=== PATIENT | male | born 2000 | race Caucasian/White ===

== ENCOUNTER 2023-10-26 03:22 | Emergency (ER) | payer SELFPAY ==
[2023-10-26 03:23] VITALS: BP 183/110; PULSE 105; RESP 18; TEMP 36.4; O2SAT 100; BMI 30.4
--- NOTE | 2023-10-26 03:29 | EKG12_ITS ---
Test Reason : [facility] [place] Blood Pressure : / mmHG Vent. Rate : 092 BPM Atrial Rate : 092 BPM P-R Int : 132 ms QRS Dur : 088 ms QT Int : 372 ms P-R-T Axes : 049 010 037 degrees QTc Int : 460 ms Normal sinus rhythm Minimal voltage criteria for LVH, may be normal variant ( R in aVL ) Borderline ECG Confirmed by ANA AGUAYO, МАРИНА ([id number]), editorial assistant DARREN LATIF ([id number]) on 11/03/2023 9:19:48 AM Referred By: Confirmed By:МАРИНА PEREZ MD
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
[2023-10-26 03:54] LABS: Absolute Lymphocyte Count 2.09 X10^3/uL (0.83-4.51); Absolute Neutrophil Count 6.5 X10^3/uL (2.0-7.7); Basophil# 0.05 X10^3/uL; Basophil% 0.5 % (0-1); Eosinophil# 0.02 X10^3/uL; Eosinophils% 0.2 % (0-5); Hematocrit 46.1 % (40-54); Hemoglobin 15.4 g/dL (13.0-16.5); Lymphocyte # 2.09 X10^3/ul (0.83-4.51); Lymphocyte % 22.1 % (19-41); Mean Corp Hgb Conc 33.4 g/dL (32-36); Mean Corpuscular Hgb 30.1 pg (27.0-32.0); Mean Platelet Vol. 11.2 fl (6.2-12.0); Monocyte# 0.76 X10^3/uL; NRBC Flagged by Analyzer 0 % (0-5); Neutrophil # 6.49 X10^3/uL (2.7-7.7); Neutrophil % 68.7 % (47-70); Platelet Count 262 K/mm3 (150-450); RBC Distribution Width CV 12.1 % (11.6-14.6); Red Blood Count 5.12 M/mm3 (4.6-6.2); White Blood Count 9.5 K/mm3 (4.4-11.0)
[2023-10-26 04:22] VITALS: RESP 16; O2SAT 98
[2023-10-26 05:22] VITALS: BP 126/73; PULSE 78; RESP 16; TEMP 36.6; O2SAT 98
[2023-10-26 07:24] LABS: Amphetamine Urine VISTA NEGATIVE (<1000 ng/mL); Barbiturate Urine VISTA NEGATIVE (< 200 ng/mL); Benzodiazepine Urine VISTA NEGATIVE (< 200 ng/mL); Cocaine Urine VISTA NEGATIVE (< 300 ng/mL); Ecstacy Urine VISTA NEGATIVE (< 500 ng/mL); Methadone Urine VISTA NEGATIVE (< 300 ng/mL); PCP Urine VISTA NEGATIVE (< 25 ng/mL); THC Urine VISTA NEGATIVE (< 50 ng/mL); Vista UDS pH Range 6
[2023-10-26 09:09] VITALS: BP 140/84; PULSE 80; RESP 16; TEMP 36.6; O2SAT 98
--- NOTE | 2023-10-26 09:45 | NURSING ---
Pt allowed to use personal phone at this time. [place] set that if having the phone escalated any negative behavior, it would be taken. Pt agreeable to this.
[2023-10-26 10:12] LABS: BUN 6 mg/dL (7-18); BUN/Creat Ratio 5.6 RATIO (10-20); Creatinine, Serum 1.08 mg/dL (0.70-1.30); Estimated Creatinine Clearance 87.55 ml/min; Glucose 104 mg/dL (74-106)
[2023-10-26 10:13] LABS: ALB/GLOB Ratio 1.1 RATIO (0.9-2.4); AST(SGOT) 26 U/L (15-37); Alanine Aminotransfer ALT/SGPT 38 U/L (16-61); Alkaline Phosphatase 58 U/L (45-117); Anion Gap 8 (5-15); Chloride 109 mmol/L (98-107); Globulin 3.6 g/dL (2.2-4.2); Potassium 3.4 mmol/L (3.5-5.1); Protein, Total 7.6 g/dL (6.4-8.2); Sodium Level 139 mmol/L (136-145); Thyroid Stim Hormone (TSH) 1.78 uIU/mL (0.358-3.74)
--- NOTE | 2023-10-26 11:38 | NURSING ---
FAXED CHART TO CRISIS
--- NOTE | 2023-10-26 11:49 | NURSING ---
KEVIN, CRISIS, CALLED. ANTHONY WILL BE OUT TO SEE PATIENT
--- NOTE | 2023-10-26 11:55 | NURSING ---
Pt's mother present. Updated her while in the room with the pt about current medical care. Currently the pt is awaiting a crisis evaluation, as ETOH level is within limits for evaluation.
--- NOTE | 2023-10-26 12:36 | NURSING ---
ANTHONY, CRISIS, CALLED. SHE WILL BE RIGHT OVER
[2023-10-26 13:09] LABS: EST Glomerular Filtration Rate 89 mL/min (>60); Est Glom Filt Rate - Afr Amer 107 mL/min (>60)
[2023-10-26 16:19] VITALS: BP 110/66; PULSE 84; RESP 16; TEMP 36.7; O2SAT 97; O2SAT 98
--- NOTE | 2023-10-26 16:48 | NURSING ---
ACCEPTED AT [facility] TO CALL FOR TRANSPORT [facility], BED 115 A, DUEL DIAGNOSIS NURSE TO NURSE [phone] REYNOSO
[2023-10-26 20:00] VITALS: PULSE 76; RESP 12; O2SAT 98
== END 2023-10-26 20:20 ==
PROVIDERS: Emergency Provider Emergency Medicine; Visit Provider Emergency Medicine
DX: F32.A Depression, unspecified (principal); F10.129 Alcohol abuse with intoxication, unspecified; R45.851 Suicidal ideations; I10 Essential (primary) hypertension; F17.210 Nicotine dependence, cigarettes, uncomplicated; Y90.7 Blood alcohol level of 200-239 mg/100 ml
CPT/HCPCS: 80053; 80307; 80320; 84443; 85025; 87811; 93005; 99285; A4216; G0480